=== PATIENT | female | born 1950 | race Two or more races ===

== ENCOUNTER 2018-07-02 08:55 | Outpatient (CLI) | payer OTHER | END 2018-07-02 09:04 | disposition home or self-care (01) | LOC: TOM 08:55 | DX: R19.5 Other fecal abnormalities (principal); D50.8 Other iron deficiency anemias ==

== ENCOUNTER 2018-10-16 07:01 | Inpatient (IN) | payer OTHER ==
[~2018-10-16] VITALS: Ht 160 cm; Wt 68.0 kg
[2018-10-16] MEDS ORDERED: COZAAR25 MG PO (07:24)
[2018-10-16] MEDS ORDERED: SYNTHROID100 MCG PO (07:25)
[2018-10-17] MEDS ORDERED: LOSARTAN-HCTZ1 EACH PO (11:23)
[2018-10-22] MEDS ORDERED: HYOSCYAMINE0.125 M1 SL (10:59)
[2018-10-22] MEDS ORDERED: CHOLESTYRAMINE L4 GM PO (10:59)
[2018-10-22] MEDS ORDERED: Intestinex CAP PO (10:59)
== END 2018-10-22 13:42 | disposition home or self-care (01) | DRG 331 ==
LOC: ER 07:01 → SEC-K 21:05 → MEDI 21:05 → SURH 21:05 → MEDI 21:26 → SURH 10-19 11:52
PROVIDERS: Surgery; ADMIT Internal Medicine
PROC: BW21Y0Z Computerized Tomography (CT Scan) of Abdomen and Pelvis using Other Contrast, Unenhanced and Enhanced (ICD-10-PCS; 2018-10-16)
PROC: 30233N1 Transfusion of Nonautologous Red Blood Cells into Peripheral Vein, Percutaneous Approach (ICD-10-PCS; 2018-10-16)
PROC: B246ZZZ Ultrasonography of Right and Left Heart (ICD-10-PCS; 2018-10-17)
PROC: 07BB4ZZ Excision of Mesenteric Lymphatic, Percutaneous Endoscopic Approach (ICD-10-PCS; 2018-10-19)
PROC: 0DTK4ZZ Resection of Ascending Colon, Percutaneous Endoscopic Approach (ICD-10-PCS; principal; 2018-10-19 07:15)
DX: C18.2 Malignant neoplasm of ascending colon (principal); D50.0 Iron deficiency anemia secondary to blood loss (chronic); I10 Essential (primary) hypertension; E03.8 Other specified hypothyroidism; E78.49 Other hyperlipidemia; D12.1 Benign neoplasm of appendix

== ENCOUNTER 2020-10-11 09:50 | Day surgery (SDC) | payer OTHER ==
[~2020-10-11 09:50] MED LIST: CHOLESTYRAMINE L4 GM PO; COZAAR25 MG PO; HYOSCYAMINE0.125 M1 SL; Intestinex CAP PO; LOSARTAN-HCTZ1 EACH PO; SYNTHROID100 MCG PO
== END 2020-10-11 14:20 | disposition home or self-care (01) ==
LOC: AMB-ENDOS 09:50
PROVIDERS: ATTEND Surgery
DX: K62.89 Other specified diseases of anus and rectum (principal); K64.8 Other hemorrhoids; Z20.828 Contact with and (suspected) exposure to other viral communicable diseases

== ENCOUNTER 2021-11-14 06:52 | Day surgery (SDC) | payer OTHER | END 2021-11-14 10:35 | disposition home or self-care (01) | LOC: AMB-ENDOS 06:52 | PROVIDERS: ATTEND Surgery | DX: K62.89 Other specified diseases of anus and rectum (principal); K64.8 Other hemorrhoids; Z20.822 Contact with and (suspected) exposure to COVID-19 ==